=== PATIENT | female | born 1960 | race Caucasian/White ===

== ENCOUNTER 2018-03-26 05:14 | Inpatient (IN) | payer OTHER ==
[2018-03-26] VITALS (12 sets, daily range): BP systolic 109–141; BP diastolic 50–88
[~2018-03-26] VITALS: Ht 156.2 cm; Wt 86.6 kg
[~2018-03-26 05:14] MED LIST: OMEPRAZOLE20 M3 ORAL
[2018-03-26] MEDS ORDERED: Bacitracin 50000 Units Vial ONE (06:31)
[2018-03-26] MEDS ORDERED: Thrombin 5000 units TOPIC ONE (06:31)
[2018-03-26] MEDS ORDERED: Gelfoam Size TOPIC ONE (06:31)
[2018-03-26] MEDS ORDERED: Sugammadex Sodium 200mg/2ml vial IV ONE (06:47)
[2018-03-26] MEDS ORDERED: Zemuron 50mg/5ml Inj IV ONE (06:48)
[2018-03-26] MEDS ORDERED: Propofol 200mg/20ml IV ONE (06:53)
[2018-03-26] MEDS ORDERED: fentaNYL 100 mcg/2 mL IV ONE (06:53)
[2018-03-26] MEDS ORDERED: Midazolam 2mg/2ml Inj ONE (06:53)
[2018-03-26] MEDS ORDERED: Lidocaine 1% MPF 10mg/ml 5ml ONE (06:53)
--- NOTE | 2018-03-26 06:57 | Anethesia Preoperative Eval ---
Anesthesia Pre-op PMH/ROS General Date of Evaluation: Mar 26, 2018 Anesthesiologist: Usama ASA Score: ASA 3 Mallampati Score Class I : Soft palate, uvula, fauces, pillars visible Class II: Soft palate, uvula, fauces visible Class III: Soft palate, base of uvula visible Class IV: Only hard plate visible Mallampati Classification: Class II Surgeon: Dulce Diagnosis: Cervical radiculopathy Surgical Procedure: ACDF C4-6 Anesthesia History: none Family History: no anesthesia problems Allergies: Coded Allergies: MORPHINE (Verified Allergy, Intermediate, 03/25/18) ITCHING, HALLUCINATIONS Uncoded Allergies: NEOPRENE (Allergy, Severe, 03/25/18) RASH, ITCHING Medications: see eMAR Past Medical History Cardiovascular: Denies: HTN, CAD, MT, valve dz, arrhythmia, other Pulmonary: Denies: asthma, COPD, NAYANA, other Gastrointestinal/Genitourinary: Reports: GERD; Denies: CRI, ESRD, other Neurologic/Psychiatric: Denies: dementia, CVA, depression/anxiety, TIA, other Endocrine: Denies: DM, hypothyroidism, steroids, other HEENT: Denies: cataract (L), cataract (R), glaucoma, UGASHIK (L), UGASHIK (R), other Hematology/Immune: Reports: other - Right breast CA s/p bilateral mastectomy; Denies: anemia, DVT, bleeding disorder Musculoskeletal/Integumentary: Denies: OA, RA, DJD, DDD, edema, other Other: obesity PSxH Narrative: Bilateral mastectomy, left shoulder sx, right ankle sx, right wrist CTR Anesthesia Pre-op Phys. Exam Physician Exam Last Vital Signs Date Time Temp Pulse Resp B/P (MAP) Pulse Ox O2 Delivery O2 Flow Rate FiO2 03/26/18 06:03 Room Air 03/26/18 05:46 97.1 72 18 114/73 (87) 98 97.1 Constitutional: NAD Cardiovascular: RRR Respiratory: CTA Airway Exam Mallampati Score: Class II MO: limited ROM: limited Teeth: intact Anesthesia Pre-op A/P Labs see chart Studies Pre-op Studies: EKG - sr Risk Assessment & Plan Assessment: ASA III Plan: GA Status Change Before Surgery: No Pre-Antibiotics Drug: Ancef 2g Given Within 1 Hr of Incision: Yes Paola Cooper MD Mar 26, 2018 06:57
[2018-03-26] MEDS ORDERED: LR 1000ml ONE (07:00)
[2018-03-26] MEDS ORDERED: ceFAZolin sod 2 GM in D5W 110 ML IVPB ONE (07:00)
[2018-03-26] MEDS ORDERED: Propofol 1,000mg/ 100ml btl IV ONE (07:00)
[2018-03-26] MEDS ORDERED: NS Irrig 1000ml ONE (07:00)
[2018-03-26] MEDS ORDERED: Sterile Water Irrig 1000ml IRRIG ONE (07:00)
[2018-03-26] MEDS ORDERED: LR 1000ml 1,000 ML IVLG SCH ×2 (07:13→07:53)
[2018-03-26] MEDS ORDERED: Hydromorphone 0.5mg/0.5ml inj IVP PRN ×2 (07:15→08:00)
[2018-03-26] MEDS ORDERED: DiphenhydrAMINE 50mg/ml Inj IVP PRN ×3 (07:15→11:45)
[2018-03-26] MEDS ORDERED: LORazepam Inj 2mg/ml 1ml IV PRN ×2 (07:15→08:00)
[2018-03-26] MEDS ORDERED: Labetalol 5mg/ml 20ml vial IV PRN ×2 (07:15→08:00)
[2018-03-26] MEDS ORDERED: Midazolam 2mg/2ml Inj IVP PRN ×2 (07:15→08:00)
[2018-03-26] MEDS ORDERED: fentaNYL 100 mcg/2 mL IV PRN ×2 (07:15→08:00)
[2018-03-26] MEDS ORDERED: Metoclopramide 10mg/2ml Inj IVP PRN ×2 (07:15→08:00)
--- NOTE | 2018-03-26 07:23 | Pre-Procedure Note/Attestation ---
Pre-Procedure Note/Attestation Complete Prior to Procedure Planned Procedure: not applicable Procedure Narrative: Anterior Cervical Discectomy and fusion of C45 and C56 Indications for Procedure Pre-Operative Diagnosis: C45 and 56 herniation Attestation I attest that I discussed the nature of the procedure; its benefits; risks and complications; and alternatives (and the risks and benefits of such alternatives ), prior to the procedure, with the patient (or the patient's legal care support representative). I attest that, if there was a reasonable possibility of needing a blood transfusion, the patient (or the patient's legal care support representative) was given the [facility] standardized written summary, pursuant to the [place]man[place] Blood Safety Act ([place] Health and Safety Code # 1645, as amended). I attest that I re-evaluated the patient just prior to the surgery and that there has been no change in the patient's H&P, except as documented below: Rafael Cardona MD Mar 26, 2018 07:23
--- NOTE | 2018-03-26 07:24 | Brief Operative Note ---
Immediate Post Operative Note Operative Note Chief Complaint: Neck pain and radiculopathy Pre-op Diagnosis: C45 and 56 herniation Procedure: ACDF C45 and 56 Post-op Diagnosis: same as pre-op Findings: consistent w/pre-op dx studies Surgeon: Dulce Customs Opener Verifier Packer: Yovany Anesthesia: general Specimen: none Complications: none Condition: stable Fluids: IVF Estimated Blood Loss: minimal Drains: none Implant(s) used?: Yes - Prodisc C sz 5 Rafael Cardona MD Mar 26, 2018 07:24
[2018-03-26] MEDS ORDERED: Morphine Sulfate 2mg/ml Inj IV PRN (07:30)
[2018-03-26] MEDS ORDERED: HYDROcodone/Acetamin 7.5/325 tab ORAL PRN (07:30)
[2018-03-26] MEDS ORDERED: Norco 5mg/325mg tab ORAL PRN (07:30)
[2018-03-26] MEDS ORDERED: Morphine Sulfate 4mg/ml Inj (IV USE ONLY) IV PRN ×2 (07:30)
[2018-03-26] MEDS ORDERED: Naloxone 0.4mg/ml Inj IVP PRN (07:30)
[2018-03-26] MEDS ORDERED: Milk of Magnesia 30ml Ud ORAL PRN (07:30)
[2018-03-26] MEDS ORDERED: Chloraseptic Spray 20mL Bottle ORAL PRN (07:30)
[2018-03-26] MEDS ORDERED: Metoclopramide 10mg/2ml Inj ONE (08:43)
--- NOTE | 2018-03-26 09:20 | Immediate Post-Op Evaluation ---
Immediate Post-Op Evalulation Immediate Post-Op Evalulation Procedure: ACDF C4-6 Date of Evaluation: Mar 26, 2018 Time of Evaluation: 09:18 IV Fluids: 1.4L Blood Products: 0 Estimated Blood Loss: 50 Urinary Output: 300 Blood Pressure Systolic: 128 Blood Pressure Diastolic: 82 Pulse Rate: 80 Respiratory Rate: 16 O2 Sat by Pulse Oximetry: 100 Temperature (Fahrenheit): 97 Pain Score (1-10): 0 Nausea: No Vomiting: No Complications 0 Patient Status: awake, reacts, patent, none Hydration Status: adequate Drug: Ancef 2g Given Within 1 Hr of Incision: Yes Time Given: 07:15 Paola Cooper MD Mar 26, 2018 09:20
[2018-03-26] MEDS: Dexamethasone 4mg/ml vial IVP SCH ×3 (12:14→23:10)
[2018-03-26] MEDS: NS w/KCl 20mEq 1,000 ML IV SCH ×2 (12:14→23:10)
[2018-03-26] MEDS: ceFAZolin sod 1 GM in D5W 55 ML IV SCH ×2 (15:22→23:10)
--- NOTE | 2018-03-26 15:27 | Diagnostic Imaging Report ---
Indication: Neck Pain Findings: 5 fluoroscopic views of the cervical spine were obtained. Images showing anterior fusion C4-5 and C5-6 on the multiple views. IMPRESSION: Intraoperative imaging
[2018-03-26] MEDS: Docusate 100mg cap ORAL SCH (17:27)
[2018-03-27] VITALS: BP 112/77
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
[2018-03-27 04:00] VITALS: BP 126/72
[2018-03-27] MEDS: Dexamethasone 4mg/ml vial IVP SCH (06:16)
[2018-03-27] MEDS: ceFAZolin sod 1 GM in D5W 55 ML IV SCH (06:20)
[2018-03-27 08:00] VITALS: BP 102/69
[2018-03-27] MEDS: NS w/KCl 20mEq 1,000 ML IV SCH (08:16)
[2018-03-27] MEDS ORDERED: SOMA350 MG PO (08:34)
[2018-03-27] MEDS ORDERED: NORCO 10-325 T1 EACH ORAL (08:34)
[2018-03-27] MEDS: Docusate 100mg cap ORAL SCH (09:00)
[2018-03-27 14:21] VITALS: BP 112/68
--- NOTE | 2018-03-27 14:21 | 48 Hour Post Anesthesia Eval ---
Post Anesthesia Evaluation Procedure: ACDF C4-6 Date of Evaluation: Mar 27, 2018 Time of Evaluation: 08:10 Blood Pressure Systolic: 112 0: 68 Pulse Rate: 68 Respiratory Rate: 20 Temperature (Fahrenheit): 97.6 O2 Sat by Pulse Oximetry: 99 Airway: patent Nausea: No Vomiting: No Pain Intensity: 2 Hydration Status: adequate Cardiopulmonary Status: stable Mental Status/LOC: patient returned to baseline Follow-up Care/Observations: n/a Post-Anesthesia Complications: none Follow-up care needed: ready to discharge Fran Bradshaw MD Mar 27, 2018 14:21
--- NOTE | 2018-03-27 23:15 | Discharge Summary ---
DATE OF ADMISSION: 03/26/2018 DATE OF DISCHARGE: 03/27/2018 PROCEDURE PERFORMED DURING ADMISSION: Anterior cervical discectomy and fusion of cervical spine. REASON FOR ADMISSION: Cervical herniation. HOSPITAL COURSE/TREATMENT RENDERED: . DISCHARGE PHYSICAL EXAM: 1. Patient was ambulating with and without the assistance of physical therapy. 2. Prior to discharge home incision was clean and dry with minimal swelling. 3. Follows commands. 4. Alert and oriented. 5. Ca discontinued, voiding. 6. Incentive spirometer at bedside. 7. IVF hep locked. MOTOR: Demonstrates expected postoperative bulk and tone. Moves biceps, triceps, and deltoid musculature on command. Moves hip flexors, quadriceps, tibialis anterior, EHL, gastrocsoleus musculature on command as well. TREATMENT RENDERED: 1. Daily nursing care. 2. Physical Therapy. 3. Occupational Therapy. 4. Intravenous medications. 5. Oral medications. 6. Daily postoperative examinations by Spine surgery team. CONDITION OF PATIENT ON DISCHARGE: The condition on discharge is stable for discharge to home. DISCHARGE INSTRUCTIONS: Our specific instructions relating to physical activity, medications diet and follow-up care are detailed in our standard operative folder and were given to this patient prior to surgery. We will however summarize these briefly as stated below. Regarding physical activity we would like the patient to limit their flexion, extension and rotation. We also require a limitation on their bending lifting and twisting. All medication has been called in prior to surgery to their pharmacy of choice. They can resume their regular diet once tolerated. We would like them to shower and limit soaking the wound in a tub/Jacuzzi/the ocean for a period of one month or until the incision is completely healed. We will have them follow up in our office in three weeks time for their regularly scheduled appointment. They understand to call our office tomorrow to schedule the time for their three week followup appointment. The patient will notify us should they experience any increase in the severity of pain, redness/swelling/ or drainage from their incision. Rafael Cardona M.D. DR: LALITHA JOB#: [id number] CC:
== END 2018-03-27 09:00 | disposition home or self-care (01) | DRG 473 ==
LOC: SDSOVERFLO 05:14 → 3E 10:21
DX: M50.121 Cervical disc disorder at C4-C5 level with radiculopathy (principal); M48.02 Spinal stenosis, cervical region; K21.9 Gastro-esophageal reflux disease without esophagitis; Z85.3 Personal history of malignant neoplasm of breast; Z90.13 Acquired absence of bilateral breasts and nipples; Z88.6 Allergy status to analgesic agent; T14.90XS Injury, unspecified, sequela; V43.52XS Car driver injured in collision with other type car in traffic accident, sequela
CPT/HCPCS: 36415; 72040; 76001; 86850; 86900; 86901; 87081; 94003; 94150; 94760; J2250; J2405; J2765